=== PATIENT | female | born 1985 | race African-American/Black ===

== ENCOUNTER 2017-03-06 16:01 | Emergency (ER) | payer MEDICAID, OTHER ==
[~2017-03-06] VITALS: Ht 175.3 cm; Wt 110.0 kg
[~2017-03-06 16:01] MED LIST: ALBU17AE26; HYDR-2510; PREN-142 PO; PREN-88 PO
[2017-03-06 16:02] VITALS: BP 152/93
== END 2017-03-06 19:30 | disposition left against medical advice (07) ==
LOC: ER 16:15
DX: Z53.21 Procedure and treatment not carried out due to patient leaving prior to being seen by health care provider (principal)

== ENCOUNTER 2017-03-07 08:31 | Emergency (ER) | payer MEDICAID ==
[~2017-03-07] VITALS: Ht 177.8 cm; Wt 80.0 kg
[2017-03-07] MEDS ORDERED: KETOROLAC 60MG/2ML VIAL IM ONE (09:30)
[2017-03-07] MEDS ORDERED: METOCLOPRAMIDE HCL 5MG TABLET PO ONE (09:30)
[2017-03-07 12:07] LABS: BASOPHILS % 0.6 % (0.0-2.0); HEMATOCRIT. 33.9 % (36.0-48.0); HEMOGLOBIN. 11.3 g/dL (12.0-16.0); LYMPHOCYTES % 20.7 % (20.0-50.0); MEAN CORPUSCULAR HEMOGLOBIN 25.2 pg (28.0-32.0); MEAN CORPUSCULAR VOLUME 75.3 fL (81.0-99.0); MEAN PLATELET VOLUME 8.1 fl (7.4-10.4); MONOCYTES % 5.8 % (2.0-8.0); NEUTROPHILS % 71.9 % (40.0-76.0); PLATELET 332 x1000/uL (130-400); RED BLOOD CELL COUNT 4.51 mill/uL (4.2-5.4); RED CELL DISTRIBUTION WIDTH 17.8 % (11.6-14.6)
[2017-03-07 12:13] LABS: PROTHROMBIN TIME 10.6 sec
[2017-03-07 12:20] LABS: CARBON DIOXIDE 30 mEq/L (21-32); CHLORIDE 105 mEq/L (98-107)
[2017-03-07 12:28] LABS: GLUCOSE URINE NEGATIVE (NEGATIVE); KETONES URINE NEGATIVE (NEGATIVE); LEUKOCYTE ESTERASE URINE NEGATIVE (NEGATIVE); NITRITE URINE NEGATIVE (NEGATIVE); OCCULT BLOOD URINE NEGATIVE (NEGATIVE); PROTEIN URINE NEGATIVE (NEGATIVE); UROBILINOGEN URINE 0.2 E.U./dL (0.2-1.0)
[2017-03-07 12:29] LABS: COLOR URINE DARK YELLOW (YELLOW)
[2017-03-07 12:30] LABS: CLARITY URINE SL HAZY (CLEAR)
[2017-03-07 12:38] LABS: *BARBITURATES SCREEN URINE NEGATIVE (NEGATIVE); *BENZODIAZEPINES SCREEN URINE NEGATIVE (NEGATIVE); *COCAINE SCREEN URINE NEGATIVE (NEGATIVE); METHADONE URINE SCREEN NEGATIVE (NEGATIVE); OPIATES URINE SCREEN NEGATIVE (NEGATIVE)
[2017-03-07 12:41] LABS: *AMPHETAMINES SCREEN URINE PRESUMTIVE POSITIVE (NEGATIVE); CANNABINOID URINE SCREEN PRESUMTIVE POSITIVE (NEGATIVE); PHENCYCLIDINE URINE SCREEN PRESUMTIVE POSITIVE (NEGATIVE)
[2017-03-07 13:45] VITALS: BP 131/95
== END 2017-03-07 13:46 | disposition home or self-care (01) ==
LOC: ER 08:49
DX: R51 Headache (principal); Z88.8 Allergy status to other drugs, medicaments and biological substances; I10 Essential (primary) hypertension; J45.909 Unspecified asthma, uncomplicated
CPT/HCPCS: 36415; 80053; 80305; 81001; 81025; 83690; 85025; 85610; 96372; 99284; J1885; Z7610; J8597

== ENCOUNTER 2017-06-02 08:00 | Emergency (ER) | payer MEDICAID ==
[~2017-06-02] VITALS: Ht 180.3 cm; Wt 91.0 kg
[2017-06-02 10:48] LABS: BASOPHILS % 0.2 % (0.0-2.0); EOSINOPHILS % 0.7 % (0.0-5.0); HEMATOCRIT. 35.2 % (36.0-48.0); HEMOGLOBIN. 11.6 g/dL (12.0-16.0); MEAN CORPUSCULAR HEMOGLOBIN 25.3 pg (28.0-32.0); MEAN CORPUSCULAR VOLUME 76.8 fL (81.0-99.0); MEAN PLATELET VOLUME 8.6 fl (7.4-10.4); MONOCYTES % 10.5 % (2.0-8.0); NEUTROPHILS % 68.6 % (40.0-76.0); PLATELET 263 x1000/uL (130-400); RED BLOOD CELL COUNT 4.58 mill/uL (4.2-5.4); RED CELL DISTRIBUTION WIDTH 17.8 % (11.6-14.6)
[2017-06-02 11:06] LABS: CARBON DIOXIDE 27 mEq/L (21-32); CHLORIDE 105 mEq/L (98-107)
[2017-06-02 14:50] VITALS: BP 136/71
== END 2017-06-02 14:51 | disposition home or self-care (01) ==
LOC: ER 08:09
DX: J06.9 Acute upper respiratory infection, unspecified (principal); N17.0 Acute kidney failure with tubular necrosis; E11.21 Type 2 diabetes mellitus with diabetic nephropathy; E11.65 Type 2 diabetes mellitus with hyperglycemia; I10 Essential (primary) hypertension; J45.909 Unspecified asthma, uncomplicated; F17.210 Nicotine dependence, cigarettes, uncomplicated; E88.09 Other disorders of plasma-protein metabolism, not elsewhere classified; E86.0 Dehydration; F12.10 Cannabis abuse, uncomplicated; Z88.8 Allergy status to other drugs, medicaments and biological substances
CPT/HCPCS: 36415; 71010; 80053; 83036; 85025; 85651; 93005; 99285; Z7610

== ENCOUNTER 2017-07-28 19:53 | Emergency (ER) | payer MEDICAID | END 2017-07-28 21:37 | disposition left against medical advice (07) | LOC: ER 21:37 | DX: R07.9 Chest pain, unspecified (principal); Z53.21 Procedure and treatment not carried out due to patient leaving prior to being seen by health care provider ==

== ENCOUNTER 2019-08-14 20:48 | Emergency (ER) | payer MEDICAID ==
[~2019-08-14] VITALS: Ht 170.2 cm; Wt 90.0 kg
[~2019-08-14 20:48] MED LIST changes: -PREN-142 PO; +PRENATAL ONE T1 EACH PO
[2019-08-14] MEDS ORDERED: ALBUTEROL (0.083%) 2.5MG/3ML NEB HHN STA (22:19)
[2019-08-14] MEDS ORDERED: METHYLPREDNISOLONE SOD SUCC 125 MG/2 ML VIAL IV STA (22:19)
[2019-08-14] MEDS ORDERED: IPRATROPIUM BROMIDE (0.02%) 0.5MG/2.5ML NEB HHN STA (22:19)
[2019-08-14] MEDS ORDERED: SODIUM CHLORIDE 0.9% 1000ML BAG (SEPSIS BOLUS) IV ONE (22:30)
[2019-08-14] MEDS ORDERED: LEVOFLOXACIN 750MG PREMIX 150 ML IV ONE (22:30)
[2019-08-14 23:13] LABS: BASOPHILS % 0.4 % (0.0-2.0); EOSINOPHILS % 4.2 % (0.0-5.0); HEMOGLOBIN. 10.4 g/dL (12.0-16.0); LYMPHOCYTES % 16.3 % (20.0-50.0); MEAN CORPUSCULAR HEMOGLOBIN 24.4 pg (28.0-32.0); MEAN CORPUSCULAR VOLUME 74.8 fL (81.0-99.0); MEAN PLATELET VOLUME 7.5 fl (7.4-10.4); MONOCYTES % 8.9 % (2.0-8.0); NEUTROPHILS % 70.2 % (40.0-76.0); PLATELET 441 x1000/uL (130-400); RED BLOOD CELL COUNT 4.28 mill/uL (4.2-5.4); RED CELL DISTRIBUTION WIDTH 18.4 % (11.6-14.6)
[2019-08-14 23:21] LABS: CHLORIDE 108 mEq/L (98-107)
[2019-08-14 23:26] LABS: ETHANOL BLOOD < 10 mg/dL
[2019-08-14 23:27] LABS: PARTIAL THROMBOPLASTIN TIME 30.1 sec (23.4-31.0); PROTHROMBIN TIME 10.6 sec (9.6-11.0)
[2019-08-14 23:33] LABS: HCG SCREEN NEGATIVE
[2019-08-15 00:34] VITALS: BP 145/81
== END 2019-08-15 00:36 | disposition left against medical advice (07) ==
LOC: ER 20:48
DX: J45.901 Unspecified asthma with (acute) exacerbation (principal); R60.0 Localized edema; I10 Essential (primary) hypertension; F17.200 Nicotine dependence, unspecified, uncomplicated; D64.9 Anemia, unspecified; Z88.8 Allergy status to other drugs, medicaments and biological substances; Z79.899 Other long term (current) drug therapy
CPT/HCPCS: 36415; 71045; 80053; 80320; 83605; 83880; 84145; 84484; 84703; 85025; 85610; 85730; 87040; 87804; 93005; 94644; 96365; 96375; 99285; J1956; J2930; J7030; J7611; Z7610; 80305; G0480

== ENCOUNTER 2022-12-21 15:10 | Emergency (ER) | payer MEDICAID, OTHER ==
[~2022-12-21] VITALS: Ht 180.3 cm; Wt 84.0 kg
[~2022-12-21 15:10] MED LIST changes: -HYDR-2510; +HYDR50TA
[2022-12-21] MEDS ORDERED: HYDR12.54 MT (16:29)
[2022-12-21] MEDS ORDERED: LISI2.5T47 MT (16:29)
[2022-12-21 16:46] VITALS: BP 148/100
== END 2022-12-21 16:47 | disposition home or self-care (01) ==
LOC: ER 15:10
DX: M79.89 Other specified soft tissue disorders (principal); I10 Essential (primary) hypertension; J45.909 Unspecified asthma, uncomplicated; Z79.899 Other long term (current) drug therapy; Z88.8 Allergy status to other drugs, medicaments and biological substances; Z76.0 Encounter for issue of repeat prescription; Z48.00 Encounter for change or removal of nonsurgical wound dressing
CPT/HCPCS: 81025; 99283